=== PATIENT | female | born 1955 | race Caucasian/White ===

== ENCOUNTER 2016-06-28 12:19 | Observation (INO) | payer BC ==
[2016-06-28] MEDS ORDERED: NS 1000 ML 1,000 ML IV ONE (12:51)
[2016-06-28 13:30] LABS: BASOPHILS # (AUTO) 0.1 X10^3/uL (0.0-0.1); BASOPHILS % (AUTO) 0.9 % (0.2-1.0); EOSINOPHILS # (AUTO) 0.2 x10^3/uL (0.0-0.2); EOSINOPHILS % (AUTO) 1.5 % (0.9-2.9); HEMATOCRIT 39.3 % (36.0-47.0); HEMOGLOBIN 12.9 g/dL (12.0-16.0); LYMPHOCYTES # (AUTO) 2.6 X10^3/uL (1.3-2.9); LYMPHOCYTES % (AUTO) 21.7 % (21.0-51.0); MEAN CORPUSCULAR HEMOGLOBIN 27.4 pg (27.0-34.0); MEAN PLATELET VOLUME 10.3 fL (7.4-11.0); MONOCYTES # (AUTO) 0.7 x10^3/uL (0.3-0.8); NEUTROPHILS # (AUTO) 8.2 x10^3/uL (2.2-4.8); NEUTROPHILS % (AUTO) 69.9 % (42.0-75.0); PLATELET COUNT 245 X10^3/uL (150.0-450.0); RED BLOOD COUNT 4.73 X10^6/uL (3.5-5.4); RED CELL DISTRIBUTION WIDTH 13.8 % (11.6-16.5); WHITE BLOOD COUNT 11.8 X10^3/uL (3.6-10.0)
[2016-06-28 13:50] LABS: ALANINE AMINOTRANSFERASE 121 Units/L (12-78); ALBUMIN 3.6 g/dL (3.4-5.0); ALKALINE PHOSPHATASE 124 Units/L (46-116); ASPARTATE AMINO TRANSFERASE 59 Units/L (15-37); BLOOD UREA NITROGEN 8 mg/dL (7-18); CALCIUM 8.9 mg/dL (8.5-10.1); CARBON DIOXIDE 29.3 mmol/L (21-32); CHLORIDE 106 mmol/L (98-107); COR NA(FOR HYPERGLY) 144 mmol/L (136-145); CREATINE KINASE 49 Units/L (26-192); CREATINE KINASE MB < 1.0 ng/mL (0-4.0); CREATININE 0.76 mg/dL (0.55-1.02); GLUCOSE 111 mg/dL (65-99); MAGNESIUM 2.1 mg/dL (1.7-2.9); SODIUM 144 mmol/L (136-145); TOTAL PROTEIN 7.7 g/dL (6.4-8.2); TROPONIN I < 0.02 ng/mL (0-1.5); eGFR BLACK RACES > 60 (>60); eGFR NON BLACK RACES > 60 (>60)
[2016-06-28 14:08] LABS: BILIRUBIN,URINE NEGATIVE (NEGATIVE); BLOOD/HEMOGLOBIN,URINE NEGATIVE (NEGATIVE); GLUCOSE, URINE NEGATIVE (NEGATIVE); KETONES,URINE NEGATIVE (NEGATIVE); LEUKOCYTE ESTERASE ,URINE NEGATIVE (NEGATIVE); NITRITES,URINE NEGATIVE (NEGATIVE); PROTEIN,URINE NEGATIVE (NEGATIVE); UROBILINOGEN,URINE NORMAL (NORMAL)
[2016-06-28] MEDS: NS 1000 ML 1,000 ML IV SCH ×2 (14:23→20:28)
[2016-06-28 14:27] LABS: APPEARANCE,URINE CLEAR (CLEAR); BACTERIA,URINE NEGATIVE /HPF (NEGATIVE); COLOR,URINE YELLOW (YELLOW); RBC,URINE 0-3 /HPF (NEGATIVE); SQUAMOUS EPITHELIAL CELL,UR RARE /HPF (NEGATIVE)
--- NOTE | 2016-06-28 14:33 | RAD ---
HISTORY: Lethargy Study: Chest one view Comparison: None Findings: The trachea is midline. The cardiac silhouette is unremarkable. The lungs are clear without focal infiltrate or effusion. The bony thorax is unremarkable. IMPRESSION: 1. No acute cardiopulmonary disease. Reported By:
[2016-06-28 15:14] VITALS: BMI 30.5
[2016-06-28 17:30] LABS: CREATINE KINASE 51 Units/L (26-192); CREATINE KINASE MB < 1.0 ng/mL (0-4.0); TROPONIN I < 0.02 ng/mL (0-1.5)
[2016-06-28] MEDS ORDERED: NEURONTIN CAP 300 MG PO ONE (18:03)
[2016-06-28] MEDS: NEURONTIN CAP 300 MG PO SCH ×2 (18:04→22:17)
[2016-06-28] MEDS ORDERED: NORCO 10/325 TAB PO PRN (18:43)
[2016-06-28] MEDS ORDERED: ZOCOR TAB 20 MG PO SCH (21:00)
[2016-06-28 21:49] LABS: CKMB % 2.3 % (<4); CREATINE KINASE 44 Units/L (26-192); CREATINE KINASE MB < 1.0 ng/mL (0-4.0); TROPONIN I < 0.02 ng/mL (0-1.5)
[2016-06-28] MEDS: VITAMIN D3 PO SCH (22:17)
[2016-06-29] MEDS: NS 1000 ML 1,000 ML IV SCH (03:45)
[2016-06-29 05:24] LABS: BASOPHILS # (AUTO) 0.1 X10^3/uL (0.0-0.1); BASOPHILS % (AUTO) 0.9 % (0.2-1.0); EOSINOPHILS # (AUTO) 0.2 x10^3/uL (0.0-0.2); EOSINOPHILS % (AUTO) 1.9 % (0.9-2.9); HEMATOCRIT 38.2 % (36.0-47.0); HEMOGLOBIN 12.4 g/dL (12.0-16.0); LYMPHOCYTES # (AUTO) 3.1 X10^3/uL (1.3-2.9); LYMPHOCYTES % (AUTO) 29.8 % (21.0-51.0); MEAN CORPUSCULAR HEMOGLOBIN 27.1 pg (27.0-34.0); MEAN CORPUSCULAR HGB CONC 32.4 g/dL (33.0-35.0); MEAN CORPUSCULAR VOLUME 83.6 fL (80.0-100.0); MEAN PLATELET VOLUME 10.8 fL (7.4-11.0); MONOCYTES # (AUTO) 0.6 x10^3/uL (0.3-0.8); MONOCYTES % (AUTO) 6.2 % (0.0-13.0); NEUTROPHILS # (AUTO) 6.4 x10^3/uL (2.2-4.8); NEUTROPHILS % (AUTO) 61.2 % (42.0-75.0); PLATELET COUNT 233 X10^3/uL (150.0-450.0); RED BLOOD COUNT 4.57 X10^6/uL (3.5-5.4); WHITE BLOOD COUNT 10.4 X10^3/uL (3.6-10.0)
[2016-06-29 05:52] LABS: ALANINE AMINOTRANSFERASE 98 Units/L (12-78); ALBUMIN 3.2 g/dL (3.4-5.0); ALKALINE PHOSPHATASE 112 Units/L (46-116); ASPARTATE AMINO TRANSFERASE 48 Units/L (15-37); BLOOD UREA NITROGEN 7 mg/dL (7-18); CALCIUM 8.4 mg/dL (8.5-10.1); CARBON DIOXIDE 22.7 mmol/L (21-32); CHLORIDE 111 mmol/L (98-107); COR NA(FOR HYPERGLY) 148 mmol/L (136-145); CREATININE 0.66 mg/dL (0.55-1.02); GLUCOSE 131 mg/dL (65-99); SODIUM 147 mmol/L (136-145); TOTAL PROTEIN 6.9 g/dL (6.4-8.2); eGFR BLACK RACES > 60 (>60); eGFR NON BLACK RACES > 60 (>60)
[2016-06-29] MEDS: VITAMIN D3 PO SCH (06:30)
[2016-06-29] MEDS: NEURONTIN CAP 300 MG PO SCH (06:30)
[2016-06-29 09:08] VITALS: BP 134/66
--- NOTE | 2016-06-29 11:45 | DR.UPDATE ---
H&P Update History and Physical Update: H&P UPDATE FOR ADMISSION 06/28/16 MS. ROSSI'S H&P WAS COMPLETED IN OUR OFFICE PRIOR TO ADMISSION. SHE HAS BEEN SEEN AND EXAMINED WITH NO CHANGES NOTED.
== END 2016-06-29 11:15 | disposition home or self-care (01) ==
LOC: ICU 12:19
PROVIDERS: ADMIT Internal Medicine; ATTEND Internal Medicine
DX: R41.82 Altered mental status, unspecified (principal); R53.83 Other fatigue; M79.672 Pain in left foot; M79.671 Pain in right foot; E86.0 Dehydration; E78.2 Mixed hyperlipidemia; K21.9 Gastro-esophageal reflux disease without esophagitis; E03.8 Other specified hypothyroidism; R94.31 Abnormal electrocardiogram [ECG] [EKG]; D72.828 Other elevated white blood cell count; R74.8 Abnormal levels of other serum enzymes
CPT/HCPCS: 36415; 71010; 80053; 80307; 81001; 82550; 82553; 83735; 84484; 85025; 85610; 85730; 93005; G0378; G0434

== ENCOUNTER 2017-03-17 11:25 | Emergency (ER) | payer BC ==
--- NOTE | 2017-03-17 11:45 | DR.GENAD ---
HPI - HPI Comment HPI Comment: PATIENT ALERT IN ED. SHE SAID SHE FELT WEEK AND IF SHE DID NOT EAT , SHE WILL FAINT. SHE STOP AND ATEA SMALL PIECE OF HAMGURGER. AT PCP, WHILE DOING HER VITAL SIGNS, SHE FAINTED. SHE IS TAKING MED FOR BRONCHITIS. WENT TO GET SOME COUGH MED AT THE OFFICE. NO FEVER. - Complaint/Symptoms Chief Complaint Doctors Comments: SYNCOPAL EPISODE AT PCP OFFICE AND HERE IN ED VIA EMS. - Nurses notes reviewed Nurses Notes Review: Yes - Source History Provided: Parent - Mode of Arrival Mode of Arrival: Stretcher - Duration Duration: Since Onset Duration: Minutes - Severity Severity: Moderate PMH - PMH Past Surgical History: Yes Surgical History: Hysterectomy, Ortho Surgery - Family History Family Medical History: Diabetes Mellitus, Cancer - Social History Do you use any recreational Drugs:: No ROS - Review of Systems Constitutional: No Symptoms Reported Eyes: No Symptoms Reported ENTM: No Symptoms Reported Respiratoy: No Symptoms Reported Cardiovascular: No Symptoms Reported Gastrointestinal/Abdominal: No Symptoms Reported Genitourinary: No Symptoms Reported Neurological: No Symptoms Reported Musculoskeletal: No Symptoms Reported Integumentary: No Symptoms Reported Hematologic/Lymphatic: No Symptoms Reported Endocrine: No Symptoms Reported All Other Systems: Reviewed and Negative PE - Vital Signs Vitals: Temperature 97.6 F Pulse Rate [Apical] 69 Pulse Rate 70 Respiratory Rate 20 Blood Pressure [Left Arm] 157/71 Blood Pressure 157/70 O2 Sat by Pulse Oximetry 94 - General Limitations: No Limitations General Appearance: Alert - Head Head Exam: Normal Inspection - Eyes Eye exam: Normal Appearance - ENT ENT Exam: Normal External Ear Exam External Ear Exam: Normal External Inspection TM/Canal Exam: Bilateral Normal Nose Exam: Normal Nose Exam Mouth Exam: Normal Inspection Throat Exam: Normal Inspection - Neck Neck Exam: Normal Inspection - Chest Chest Inspection: Symmetric Chest Wall Rise - Respiratory Respiratory Exam: Normal Lung Sounds Bilat Respiratory Exam: Bilateral Clear to Auscultation - Cardiovascular Cardiovascular Exam: Regular Rate, Normal Rhythm, Normal Heart Sounds - Abdominal Exam Abdominal Exam: Normal Bowel Sounds, Soft. negative: Tenderness - Extremities Extremities Exam: Normal Inspection - Back Back Exam: Normal Inspection - Neurologic Neurological Exam: Alert, Oriented X3 - Psychiatric Psychiatric Exam: Normal Affect, Normal Mood - Skin Skin Exam: Normal Color MDM - Additional Information Additional Information Obtained From: Family - Differential Diagnosis Differential Diagnosis: SYNCOPAL EPISODE, ONGOING BRONCHITIS Course - Treatment Treatment: SEE ORDERS. PATIENT DID NOT WISH TO BE OBSERVE IN HOSPITAL. SHE SIGN TO SAY THIS HER WISH. PATIENT IS NOT DISCHARGE AMA. SHE IS DISCHARGE HOME REGULARLT AND WILL RETURN IF WORSE. SHE FEEL BETTER CURRENTLY - Education/Counseling Education/Counseling: Patient, Family, Education Educated On: Diagnosis ROR - Labs Reviewed Laboratory Results Reviewed?: Yes Result Diagrams: 03/17/17 12:20 03/17/17 12:20 Laboratory: WBC 11.2 X10^3/uL (3.6-10.0) H 03/17/17 12:20 RBC 4.88 X10^6/uL (3.5-5.4) 03/17/17 12:20 Hgb 13.2 g/dL (12.0-16.0) 03/17/17 12:20 Hct 40.2 % (36.0-47.0) 03/17/17 12:20 MCV 82.4 fL (80.0-100.0) 03/17/17 12:20 MCH 27.1 pg (27.0-34.0) 03/17/17 12:20 MCHC 32.9 g/dL (33.0-35.0) L 03/17/17 12:20 RDW 14.5 % (11.6-16.5) 03/17/17 12:20 Plt Count 270 X10^3/uL (150.0-450.0) 03/17/17 12:20 MPV 10.9 fL (7.4-11.0) 03/17/17 12:20 Neut % 81.9 % (42.0-75.0) H 03/17/17 12:20 Lymph % 14.3 % (21.0-51.0) L 03/17/17 12:20 Esmeralda % 2.5 % (0.0-13.0) 03/17/17 12:20 Eos % 0.5 % (0.9-2.9) L 03/17/17 12:20 Baso % 0.8 % (0.2-1.0) 03/17/17 12:20 Neut # 9.2 x10^3/uL (2.2-4.8) H 03/17/17 12:20 Lymph # 1.6 X10^3/uL (1.3-2.9) 03/17/17 12:20 Esmeralda # 0.3 x10^3/uL (0.3-0.8) 03/17/17 12:20 Eos # 0.1 x10^3/uL (0.0-0.2) 03/17/17 12:20 Baso # 0.1 X10^3/uL (0.0-0.1) 03/17/17 12:20 Absolute Nucleated RBC 0.0 /100WBC 03/17/17 12:20 INR Target Range - 03/17/17 12:20 INR 0.92 (0.8-1.3) 03/17/17 12:20 PTT 26.4 SECONDS (22.9-36.5) 03/17/17 12:20 PTT Comment - 03/17/17 12:20 Sodium 142 mmol/L (136-145) 03/17/17 12:20 Corrected Sodium 143 mmol/L (136-145) 03/17/17 12:20 Potassium 4.1 mmol/L (3.5-5.1) 03/17/17 12:20 Chloride 103 mmol/L (98-107) 03/17/17 12:20 Carbon Dioxide 26.5 mmol/L (21-32) 03/17/17 12:20 BUN 15 mg/dL (7-18) 03/17/17 12:20 Creatinine 0.78 mg/dL (0.55-1.02) 03/17/17 12:20 Est GFR (MDRD) Af Amer > 60 (>60) 03/17/17 12:20 Est GFR (MDRD) Non-Af > 60 (>60) 03/17/17 12:20 Glucose 136 mg/dL (65-99) H 03/17/17 12:20 Calcium 9.1 mg/dL (8.5-10.1) 03/17/17 12:20 Corrected Calcium TNP 03/17/17 12:20 Total Bilirubin 0.30 mg/dL (0.2-1.0) 03/17/17 12:20 AST 54 Units/L (15-37) H 03/17/17 12:20 ALT 84 Units/L (12-78) H 03/17/17 12:20 Alkaline Phosphatase 204 Units/L (46-116) H 03/17/17 12:20 Creatine Kinase 83 Units/L (26-192) 03/17/17 12:20 CK-MB (CK-2) 1.7 ng/mL (0-4.0) 03/17/17 12:20 CK/CKMB % Calc 2.1 % (<4) 03/17/17 12:20 Troponin I < 0.02 ng/mL (0-1.5) 03/17/17 12:20 Total Protein 8.4 g/dL (6.4-8.2) H 03/17/17 12:20 Albumin 4.2 g/dL (3.4-5.0) 03/17/17 12:20 Globulin 4.2 g/dL (2.5-4.5) 03/17/17 12:20 Albumin/Globulin Ratio 1.0 Ratio (1.1-2.1) L 03/17/17 12:20 Influenza Type A (PCR) Negative (NEGATIVE) 03/17/17 12:57 Influenza Type B (PCR) Negative (NEGATIVE) 03/17/17 12:57 - XRAY XRAY Interpreted by: Radiologist XRAY Findings: REPORT DISCUSS WITH PATIENT AND HER FAMILY. - EKG Rhythm: NSR (EKG NOTED) - Diagnosis Discharge Problem: Episode of syncope, Bronchitis - Discharge Plan Disposition: 07 AGAINST MEDICAL ADVICE Condition: Stable - Follow ups/Referrals Follow ups/Referrals: Isma Rangel [Primary Care Provider] - 3 days - Instructions Instructions: Syncope, [id number] Additional Instructions: RETURN TO ED IF WORSE. YOU DID NOT WISH TO STAY IN HOSPITAL FOR OBSERVATION. YOU WILL SIGN AMA FOR TO INDICATE THIS WISH. DO NOT DRIVE UNTILL FOLLOW UP WITH DR. RANGEL.
[2017-03-17 11:52] VITALS: BMI 29.2
[2017-03-17 12:44] LABS: ALBUMIN 4.2 g/dL (3.4-5.0); CHLORIDE 103 mmol/L (98-107); eGFR BLACK RACES > 60 (>60); eGFR NON BLACK RACES > 60 (>60)
--- NOTE | 2017-03-17 12:47 | RAD ---
Examination: AP chest History: Cough and confusion Comparison reference 06/28/2016. Findings: Continued normal heart size with essentially clear lungs. Diminished pulmonary volumes comp ared to the prior study. There is no evidence for consolidation, pneumothorax or large pleural effusi on. Impression: No acute abnormality identified. Reported By:
--- NOTE | 2017-03-17 12:57 | CT ---
History: Confusion Study: CT head without contrast. Sagittal and coronal reformations were provided. Comparison: April 03, 2014 Findings: The ventricles and sulci are prominent without mass effect. There is no intracranial hemorr marlene or mass or edema or infarct. There is mild diffuse periventricular white-matter small-vessel low -attenuation. The subarachnoid spaces are enlarged. The calvarium appears intact. Impression: No acute intracranial disease Reported By:
[2017-03-17 13:00] LABS: BLOOD UREA NITROGEN 15 mg/dL (7-18); CALCIUM 9.1 mg/dL (8.5-10.1); CARBON DIOXIDE 26.5 mmol/L (21-32); COR NA(FOR HYPERGLY) 143 mmol/L (136-145); CREATININE 0.78 mg/dL (0.55-1.02); SODIUM 142 mmol/L (136-145); TROPONIN I < 0.02 ng/mL (0-1.5)
[2017-03-17 13:04] LABS: ALANINE AMINOTRANSFERASE 84 Units/L (12-78); ALKALINE PHOSPHATASE 204 Units/L (46-116); ASPARTATE AMINO TRANSFERASE 54 Units/L (15-37); CKMB % 2.1 % (<4); CREATINE KINASE 83 Units/L (26-192); CREATINE KINASE MB 1.7 ng/mL (0-4.0); TOTAL PROTEIN 8.4 g/dL (6.4-8.2)
[2017-03-17] MEDS ORDERED: ZOFRAN INJ 4 MG VIAL ONE (13:05)
[2017-03-17] MEDS ORDERED: ZOFRAN INJ 4 MG VIAL IVP ONE (13:12)
[2017-03-17 13:36] LABS: BASOPHILS # (AUTO) 0.1 X10^3/uL (0.0-0.1); BASOPHILS % (AUTO) 0.8 % (0.2-1.0); EOSINOPHILS # (AUTO) 0.1 x10^3/uL (0.0-0.2); EOSINOPHILS % (AUTO) 0.5 % (0.9-2.9); HEMATOCRIT 40.2 % (36.0-47.0); HEMOGLOBIN 13.2 g/dL (12.0-16.0); LYMPHOCYTES # (AUTO) 1.6 X10^3/uL (1.3-2.9); LYMPHOCYTES % (AUTO) 14.3 % (21.0-51.0); MEAN CORPUSCULAR HEMOGLOBIN 27.1 pg (27.0-34.0); MEAN CORPUSCULAR HGB CONC 32.9 g/dL (33.0-35.0); MEAN CORPUSCULAR VOLUME 82.4 fL (80.0-100.0); MEAN PLATELET VOLUME 10.9 fL (7.4-11.0); MONOCYTES # (AUTO) 0.3 x10^3/uL (0.3-0.8); MONOCYTES % (AUTO) 2.5 % (0.0-13.0); NEUTROPHILS # (AUTO) 9.2 x10^3/uL (2.2-4.8); NEUTROPHILS % (AUTO) 81.9 % (42.0-75.0); PLATELET COUNT 270 X10^3/uL (150.0-450.0); RED BLOOD COUNT 4.88 X10^6/uL (3.5-5.4); RED CELL DISTRIBUTION WIDTH 14.5 % (11.6-16.5); WHITE BLOOD COUNT 11.2 X10^3/uL (3.6-10.0)
[2017-03-17 13:42] VITALS: BP 157/71
== END 2017-03-17 14:40 | disposition left against medical advice (07) ==
LOC: ER 11:43
DX: J40 Bronchitis, not specified as acute or chronic (principal); R55 Syncope and collapse
CPT/HCPCS: 36415; 70450; 71010; 80053; 82550; 82553; 84484; 85025; 85610; 85730; 87502; 93005; 93010; 96365; 96374; 99283; 99285; J2405

== ENCOUNTER 2017-04-16 14:39 | Emergency (ER) | payer BC ==
[2017-04-16 14:47] VITALS: BP 169/72; BMI 29.6
--- NOTE | 2017-04-16 15:07 | DR.GENAD ---
HPI - PCP Primary Care Physician: CLAIRE - Complaint/Symptoms Chief Complaint Doctors Comments: Patient states that hit her head on the fireplace last night. Now has swelling and forearm swelling and pain. Ther was no vomiting or blurred vision. Chief Complaint:: PT. C/O HEAD PAIN AND LEFT FOREARM/WRIST PAIN S/P FALL. PT. HIT HER HEAD ON THE BOTTOM PART OF THE BRICK OF THE FIREPLACE. BRUISE NOTED TO RIGHT HAND. SMALL HEMATOMA AND BRUISE NOTED TO RIGHT SIDE OF FOREHEAD. - Source History Provided: Patient - Mode of Arrival Mode of Arrival: Ambulatory - Timing Onset of Chief Complaint: 04/16/17 PMH - PMH Past Medical History: Yes Past Medical History: Anxiety, Dyslipidemia, GERD, Hypothyroidism Past Medical History Comment: UTERINE/OVARIAN CANCER Past Surgical History: Yes Surgical History: Cholecystectomy, Hysterectomy, Ortho Surgery, Tonsillectomy, Other Past Surgical History Comment: LEFT & RIGHT ROTATOR CUFF, RIGHT CATARACT, C- SPINE, RIGHT ARM - Family History History of Family Medical Conditions: Yes Family Medical History: Diabetes Mellitus, Cancer - Social History Does patient currently use any type of tobacco product: No Have you used tobacco products in the last 12 months: No Type of Tobacco Use: None Does any household member use tobacco: No Alcohol Use: None Do you use any recreational Drugs:: No Lives With: Spouse Lives Where: Home - infectious screening In the last 2 months have you had wt loss of >10#?: NO Have you had fever, night sweats or hemotysis?: No Have you traveled outside the country in the last 6 months?: No Isolation: Standard ROS - Review of Systems Constitutional: No Symptoms Reported Eyes: No Symptoms Reported ENTM: No Symptoms Reported Respiratoy: No Symptoms Reported Cardiovascular: No Symptoms Reported Gastrointestinal/Abdominal: No Symptoms Reported Genitourinary: No Symptoms Reported Neurological: Headache Musculoskeletal: Muscle Pain, Forearm (left forearm) Integumentary: No Symptoms Reported Hematologic/Lymphatic: No Symptoms Reported Endocrine: No Symptoms Reported Psychiatric: No Symptoms Reported All Other Systems: Reviewed and Negative PE - Vital Signs Vitals: Temperature 99.1 F Pulse Rate 107 Respiratory Rate 17 Blood Pressure [Left Arm] 157/71 Blood Pressure 169/72 O2 Sat by Pulse Oximetry 95 - General Limitations: No Limitations General Appearance: Alert, In No Apparent Distress - Head Head Exam: Other (swelling of left forehead) - Eyes Eye exam: Normal Appearance, PERRL, EOMI - ENT ENT Exam: Normal Exam, Normal Oropharynx External Ear Exam: Normal External Inspection TM/Canal Exam: Bilateral Normal Nose Exam: Normal Nose Exam, Sinus Tenderness Mouth Exam: Normal Inspection Throat Exam: Normal Inspection - Neck Neck Exam: Normal Inspection, Full ROM - Chest Chest Inspection: Normal Inspection, Symmetric Chest Wall Rise - Respiratory Respiratory Exam: Normal Lung Sounds Bilat Respiratory Exam: Bilateral Clear to Auscultation - Cardiovascular Cardiovascular Exam: Regular Rate, Normal Rhythm - Abdominal Exam Abdominal Exam: Normal Inspection Abdominal Tenderness: negative: RUQ, RLQ, LUQ, LLQ, Epigastrium, Suprapubic, Diffuse, Mild, Moderate, Severe, Other - Extremities Extremities Exam: Tenderness (left forearm) - Back Back Exam: Normal Inspection - Neurologic Neurological Exam: Alert, Oriented X3, CN II-XII Intact - Psychiatric Psychiatric Exam: Normal Affect, Normal Mood - Skin Skin Exam: Warm, Dry, Intact ROR - XRAY XRAY Interpreted by: Radiologist (Head CT: No acute intracranial abnormality, scalp swelling; forearm: no acute abnromality) - Diagnosis Discharge Problem: Contusion of forehead Qualifiers: Encounter type: initial encounter Qualified Code(s): S00.83XA - Contusion of other part of head, initial encounter Forearm contusion Qualifiers: Encounter type: initial encounter Laterality: left Qualified Code(s): S50.12XA - Contusion of left forearm, initial encounter - Discharge Plan Condition: Stable - Follow ups/Referrals Follow ups/Referrals: Isma Price [Primary Care Provider] - 3 days - Instructions
[2017-04-16] MEDS ORDERED: TORADOL 60 MG VIAL IM ONE (15:09)
[2017-04-16] MEDS ORDERED: TORADOL 60 MG VIAL ONE (15:16)
--- NOTE | 2017-04-16 15:44 | CT ---
HISTORY: Pain after fall, hit forehead Study: CT brain without contrast Comparison: 03/17/2017 Technique: Multiple axial images of the brain were obtained from the skull base to the vertex without administra tion of IV contrast. Dose reduction techniques including Automated Exposure Control (AEC) and adjust ment of mA and kV were utilized. Findings: The brain parenchyma is within normal limits for patient's age. No evidence of acute hemorrhage, mid line shift, mass effect or abnormal extra-axial fluid collection. The ventricular system is symmetri c and nondilated. Mild left frontal scalp swelling/contusion is noted. No calvarial fracture. The vi sualized paranasal sinuses are clear. IMPRESSION: 1.No acute intracranial abnormality. 2. Left frontal scalp swelling/contusion. Reported By:
--- NOTE | 2017-04-16 15:51 | RAD ---
HISTORY: Fall with pain Study: 2 views of the left forearm. Comparison: None Findings: No acute cortical disruption or dislocation can be identified. The radius and ulna are unremarkable. No significant soft tissue swelling or injury can be seen. IMPRESSION: 1. No acute abnormality of the left forearm. Reported By:
== END 2017-04-16 17:04 | disposition home or self-care (01) ==
LOC: ER 14:39
PROC: 2W39X1Z Immobilization of Left Upper Extremity using Splint (ICD-10-PCS; principal; 2017-04-16)
DX: S00.83XA Contusion of other part of head, initial encounter (principal); S50.12XA Contusion of left forearm, initial encounter; R51 Headache; W01.198A Fall on same level from slipping, tripping and stumbling with subsequent striking against other object, initial encounter; Y92.9 Unspecified place or not applicable
CPT/HCPCS: 70450; 73090; 96372; 96374; 99282; J1885